=== PATIENT | female | born 2000 | race Caucasian/White ===

== ENCOUNTER 2021-07-11 11:27 | Outpatient (CLI) | payer OTHER, SELFPAY ==
[2021-07-11 12:35] LABS: Influenza Control Valid (Valid)
[2021-07-11 12:36] LABS: SARS-CoV-2 Ag Negative (Negative)
== END 2021-07-11 11:28 | disposition home or self-care (01) ==
PROVIDERS: PCP Internal Medicine; Visit Provider Internal Medicine
DX: Z20.822 Contact with and (suspected) exposure to COVID-19 (principal)
CPT/HCPCS: 87081; 87426; 87804; 87880; C9803

== ENCOUNTER 2022-05-04 09:11 | Outpatient (CLI) | payer OTHER, SELFPAY ==
--- NOTE | ~2022-05-04 | US_ITS ---
US abdomen limited 05/04/2022 10:25 Indication: Right lower quadrant pain and fever Procedure: High-resolution Limited ultrasound of the right lower quadrant. Comparison: No prior studies for comparison. Findings: There is fluid in the right lower quadrant with associated solid component. Cannot exclude thickened appendix at this location. No evidence for hernia. Impression: 1: Fluid in the right lower quadrant which is nonspecific. Recommend correlation with contrast-enhanc ed CT abdomen pelvis to exclude appendicitis. Reviewed, dictated and finalized at location B. Impression: 1: Fluid in the right lower quadrant which is nonspecific. Recommend correlatio n with contrast-enhanced CT abdomen pelvis to exclude appendicitis.
--- NOTE | ~2022-05-04 | US_ITS ---
EXAMINATION: US pelvic complete w TV DATE: 05/04/2022 10:24 INDICATION: Pelvic pain. Fever. IUD placement. Comparison:No prior studies for comparison. TECHNIQUE: Multiple transabdominal and endovaginal sonographic images of the pelvis performed. FINDINGS: The uterus measures 8.8 x 4.6 x 3.5 cm. There is an IUD in the endometrium. The right ovary measures 3.5 x 3.5 x 1.4 cm and the left ovary measures 5.3 x 3.6 x 3.7 cm. There is a 2.8 cm left ovarian cyst.. There are small follicles in each ovary. Normal doppler signal in both ovaries. There is free fluid in the pelvis. There are no abnormal masses seen on either side. IMPRESSION: 1. Left ovarian cyst measuring 2.8 cm. Small amount of fluid in the pelvis. Reviewed, dictated and finalized at location B.
[2022-05-04 09:46] LABS: Basophils Absolute Auto 0.01 K/mm3 (0.00-0.10); Basophils Percent Auto 0.2 % (0.0-1.0); Eosinophils Absolute Auto 0.03 K/mm3 (0.02-0.50); Eosinophils Percent Auto 0.6 % (1.0-6.0); Hematocrit 42.5 % (35.0-49.0); Hemoglobin 14.5 g/dL (12.0-15.0); Immature Granulocyte Absolute 0.02 K/mm3 (0.00-0.00); Immature Granulocyte Percent A 0.4 % (0.0-0.0); Lymphocytes Absolute Auto 0.99 K/mm3 (1.10-4.50); Lymphocytes Percent Auto 19.8 % (18.0-42.0); Mean Corpuscular HGB Conc 34.1 g/dL (32.0-36.0); Mean Corpuscular Hemoglobin 29.6 pg (27.0-31.0); Mean Corpuscular Volume 86.7 fL (78.0-102.0); Mean Platelet Volume 10.3 fl (9.2-11.8); Monocytes Absolute Auto 0.31 K/mm3 (0.10-0.90); Monocytes Percent Auto 6.2 % (2.0-11.0); Neutrophils Absolute Auto 3.7 K/mm3 (1.7-7.2); Neutrophils Percent Auto 72.8 % (50.0-70.0); Platelet Count Result 175 K/mm3 (150-420); Red Cell Distribution Width 12.1 % (11.6-14.4)
[2022-05-04 10:30] LABS: Alanine Aminotransferase 42 U/L (14-59); Albumin Level 4.1 g/dL (3.4-5.0); Alkaline Phosphatase 72 U/L (46-116); Anion Gap 5 mmol/L (8-16); Aspartate Amino Transferase 17 U/L (15-37); Bilirubin,Total 0.4 mg/dL (0.00-1.00); Blood Urea Nitrogen 15 mg/dL (7-18); Calcium 8.5 mg/dL (8.5-10.1); Carbon Dioxide 30 mmol/L (21-32); Chloride 106 mmol/L (98-108); Estimated Glomerular Filt Rate > 60; Glucose 98 mg/dL (70-99); Osmolality Calculated 292 mOsm/kg (285-295); Potassium 4.1 mmol/L (3.5-5.1); Sodium 141 mmol/L (136-145); Total Protein 7.3 g/dL (6.4-8.2)
[2022-05-04 10:43] LABS: Appearance Urine Clear (Clear); Bilirubin Urine Negative (Negative); Blood Urine Negative (Negative); Glucose Urine UA Negative (Negative); Ketones Urine Negative (Negative); Leukocyte Esterase Ur Negative LEU/UL (Negative); Nitrate Urine Negative (Negative); Protein Urine Negative (Negative); Specific Grav Ur <= 1.005 (1.010-1.020); Urobilinogen Urine 0.2 mg/dL (0.2-1.0); pH Urine 6.5 (5.0-8.0)
[2022-05-04 10:47] LABS: Add Urine Microscopic? NO; Color Urine Light Yellow (Yellow)
[2022-05-04 11:48] LABS: Pregnancy On Board Control Positive; Urine Pregnancy Test Negative
== END 2022-05-04 09:12 | disposition home or self-care (01) ==
LOC: CHSIMG 09:13
PROVIDERS: Nurse Practitioner Family; PCP Nurse Practitioner Family; Visit Provider Nurse Practitioner Family
DX: R10.9 Unspecified abdominal pain (principal); R39.9 Unspecified symptoms and signs involving the genitourinary system
CPT/HCPCS: 36415; 76705; 76830; 76856; 80053; 81003; 81025; 85025

== ENCOUNTER 2022-05-04 11:32 | Emergency (ER) | payer OTHER, SELFPAY ==
--- NOTE | ~2022-05-04 | CT_ITS ---
EXAMINATION: CT abdomen pelvis w con DATE: 05/04/2022 12:46 INDICATION: Lower abdominal pain. TECHNIQUE: Computed tomography (CT) of the abdomen and pelvis was performed with 100 cc Omnipaque 350 intravenous contrast. The dose-length product was 795.09 mGy-cm. Automated exposure control and iter ative reconstruction technique were employed. COMPARISON: None. FINDINGS: Lung bases are unremarkable. Heart size normal. No significant pleural or pericardial effus ion. No significant vascular abnormality. No lymphadenopathy. There is free fluid in the pelvis. Ther e is an IUD present. Small fat-containing umbilical hernia. The left ovary is enlarged containing mul tiple cysts, largest measuring approximately 3.8 cm. Fatty infiltration of the liver. The spleen, pancreas, adrenal glands and kidneys are unremarkable. G allbladder is present. Nonobstructive bowel gas pattern. No free air. Bladder is unremarkable. IMPRESSION: 1. Enlarged left ovary containing multiple cysts, largest measuring up to 3.8 cm. There is free fluid in the pelvic cul-de-sac. Reviewed, dictated and finalized at location B. IMPRESSION: 1. Enlarged left ovary containing multiple cysts, largest measuring up to 3.8 c m. There is free fluid in the pelvic cul-de-sac.
[2022-05-04 11:40] VITALS: BP 126/78; PULSE 90; RESP 18; TEMP 36.5; O2SAT 100
[2022-05-04 11:45] VITALS: BP 126/78; PULSE 90; RESP 18; TEMP 36.5; O2SAT 100
[2022-05-04] MEDS: SODIUM CHLORIDE 0.9% IV 1,000 ML 150 ML IV CONT (12:22)
[2022-05-04] MEDS: ONDANSETRON INJ 4 MG/2 ML VIAL IV PUSH (12:23)
[2022-05-04 12:38] LABS: CRP < 0.2 mg/dL (0.0-0.9)
[2022-05-04 12:39] LABS: Lipase 82 U/L (73-393)
[2022-05-04 12:45] VITALS: BP 118/70; PULSE 67; RESP 16; O2SAT 100
[2022-05-04 13:11] VITALS: BP 131/80; PULSE 83; RESP 16; O2SAT 99
--- NOTE | 2022-05-04 13:18 | ED.ABDPAIN ---
HPI - Abdominal Pain General Chief Complaint: Abdominal Pain Stated Complaint: SENT FROM DR OFFICE Time Seen by Provider: 05/04/22 11:32 Source: patient Mode of arrival: ambulatory Limitations: no limitations History of Present Illness HPI narrative: is a patient was sent the ER from primary care physician's office with abdominal pain, patient had an ultrasound which showed an ovarian cyst with fluid in the cul-de-sac and was concerning for possible appendicitis patient has no fever chills vitals are stable there is no dysuria or hematuria ronald patient had abdominal pain that was diffuse with localization to right lower quadrant did have left lower quadrant pain as well. With no diarrhea constipation no hematuria no flank pain no chest pain or shortness of breath. MD elicited complaint: abdominal pain Related Data Home Medications Medication Instructions Recorded Confirmed No Home Medications 05/04/22 05/04/22 Allergies Allergy/AdvReac Type Severity Reaction Status Date / Time No Known Allergies Allergy Verified 05/04/22 12:01 Review of Systems Review of Systems: All systems reviewed & are unremarkable except as noted in HPI and below PMFSH Past Medical History Medical History Patient denies medical problems Exam Const: General: healthy appearing and no acute distress Limitations: no limitations HENMT: Head: normal to inspection Ears: external ears normal Face/Nose/Sinus: Normal external nose present Face and sinus: normal facial exam Eyes: Conjunctivae: conjunctivae normal Pupils: Equal, round and reactive pupils present EOM: EOMs intact bilaterally Neck: Neck: normal visual inspection, no lymphadenopathy and no meningeal signs Chest: Chest palpation & inspection: normal inspection of the chest Resp: Effort & Inspection: normal respiratory effort Cardio: Rate: regular rate Rhythm: regular rhythm GI: GI Palp: Yes Soft to palpation and Yes Tenderness to palpation present (GI) Auscultation: normal bowel sounds : General: Yes bladder normal to palpation Back/Spine/Pelvis: Back: no CVA tenderness Skin: General skin exam: normal color Rashes: no rashes Wounds: no wounds Neuro: General: patient oriented x3, moves all extremities, no meningeal signs and no focal motor deficits Extrem: General: normal to inspection Psych: Mental Status: mental status grossly normal Affect: normal affect Course Course Emergency Course: reassessment patient currently comfortable with no acute distress abdominal pain has improved labs reviewed with patient as well as CT scan which showed no acute appendicitis white count is normal advised Tylenol or Motrin for discomfort and follow-up with personal banking advisor for further evaluation. Vital Signs Vital signs: Vital Signs Temperature 36.5 C 05/04/22 11:40 Pulse Rate 90 05/04/22 11:40 Respiratory Rate 18 05/04/22 11:40 Blood Pressure 126/78 05/04/22 11:40 Pulse Oximetry 100 05/04/22 11:40 Oxygen Delivery Room Air 05/04/22 11:40 Temperature 36.5 C 05/04/22 11:45 Pulse Rate 83 05/04/22 13:11 Respiratory Rate 16 05/04/22 13:11 Blood Pressure 131/80 05/04/22 13:11 Pulse Oximetry 99 05/04/22 13:11 Oxygen Delivery Room Air 05/04/22 13:11 MDM - Abdominal Pain Lab Data Labs: Lab Results 05/04/22 05/04/22 05/04/22 Range/Units 11:56 12:00 13:08 Lactic Acid Pending C-Reactive Protein < 0.2 (0.0-0.9) mg/dL Lipase 82 (73-393) U/L Imaging Data Radiologist's impression: ITS Impressions Abdomen/Pelvis CT 05/04/22 12:55 IMPRESSION: 1. Enlarged left ovary containing multiple cysts, largest measuring up to 3.8 cm. There is free fluid in the pelvic cul-de-sac. Critical Care Time Critical Care Time Critical Care Time: No Discharge Plan Discharge Clinical Impression: Ovarian cyst Qualifiers: Laterality: unspecified laterality
[2022-05-04 13:31] LABS: Lactic Acid Reflex 0.7 mmol/L (0.4-2.0)
[2022-05-04 13:38] VITALS: TEMP 36.6
== END 2022-05-04 13:45 | disposition home or self-care (01) ==
PROVIDERS: Emergency Provider Emergency Medicine; PCP Nurse Practitioner Family
DX: N83.209 Unspecified ovarian cyst, unspecified side (principal)
CPT/HCPCS: 36415; 74177; 83605; 83690; 86140; 96361; 96374; 99284; J2405; J7030; Q9967

== ENCOUNTER 2022-05-30 07:47 | Outpatient (CLI) | payer OTHER, SELFPAY ==
--- NOTE | ~2022-05-30 | US_ITS ---
EXAMINATION: US pelvic complete w TV DATE: 05/30/2022 08:50 INDICATION: Left lower quadrant pain. History of left ovarian cysts. Comparison:05/04/2022 TECHNIQUE: Multiple transabdominal and endovaginal sonographic images of the pelvis performed. FINDINGS: The uterus measures 8.5 x 4.8 x 3.5 cm. There is an IUD in the endometrium. Due to the IUD in the endometrium is not well delineated for measurement, although grossly unremarkable. The right ovary measures 2.5 x 1.6 x 2.5 cm and the left ovary measures 4.5 x 2.3 x 5.1 cm. There ar e small follicles in each ovary. There are small left ovarian cysts, largest measuring 2.1 cm. Normal doppler signal in both ovaries. There is no free fluid in the pelvis. There are no abnormal masses seen on either side. IMPRESSION: 1. Small left ovarian cysts, largest measuring 2.1 cm. Reviewed, dictated and finalized at location D. [employer]
== END 2022-05-30 07:48 | disposition home or self-care (01) ==
LOC: CHSIMG 07:48
PROVIDERS: PCP Nurse Practitioner Family; Visit Provider Nurse Practitioner
DX: N83.202 Unspecified ovarian cyst, left side (principal)
CPT/HCPCS: 76830; 76856